=== PATIENT | male | born 1955 | race African-American/Black ===

== ENCOUNTER 2022-02-16 15:40 | Observation (INO) ==
[2022-02-16 17:26] LABS: Albumin 4.3 G/DL (3.4-5.0); Bilirubin,Total 3.6 MG/DL (0.20-1.00); Calcium 10.8 MG/DL (8.5-10.1); Osmolality,Calculated 279.7 MOS/KG (273-304); Potassium 4.6 MMOL/L (3.5-5.1); Thyroid Stimulating Hormone 1.72 uIU/ml (0.358-3.74); Total Protein 7.7 G/DL (6.4-8.2)
[2022-02-16 17:29] LABS: Basophils # 0.1 10*3/uL (0.0-0.2); Basophils % 0.6 % (0.0-0.8); Eosinophils % 0.5 % (0.00-10.9); Hematocrit 45.8 VOL% (42.0-52.0); Hemoglobin 14.1 GM/DL (14.0-18.0); Immature Granulocytes % 0.3 %; Immature Granulocytes Absolute 0.02 #; Lymphocytes # 2.9 10*3/uL (1.4-4.0); Lymphocytes % 36.6 % (21.2-54.2); Mean Corpuscular HGB Conc 30.8 GM/DL (32-36); Mean Corpuscular Volume 90.9 FL (87-102); Mean Platelet Volume 10.6 FL (9.6-12.0); Monocytes # 0.9 10*3/uL (0.11-0.8); Monocytes % 11.8 % (1.7-12.7); Neutrophils % 50.2 % (38.7-73.9); Platelet Count 283 T/CUMM (130-400); Red Blood Count 5.04 MC/CUMM (3.8-5.5); Red Cell Distribution Width 12.2 % (9.3-17.3); White Blood Count 7.8 T/CUMM (4-12)
[2022-02-16] MEDS ORDERED: FUROSEMIDE 20 MG/2 ML VIAL IV STA (19:38)
[2022-02-16] MEDS ORDERED: FUROSEMIDE 40 MG/4 ML VIAL IV STA ×2 (19:39→20:36)
[2022-02-16] MEDS ORDERED: ONDANSETRON 4 MG/2 ML VIAL IV PRN (20:36)
[2022-02-16] MEDS ORDERED: ACETAMINOPHEN 325 MG TABLET PO PRN (20:36)
[2022-02-16] MEDS ORDERED: hydrALAZINE 20 MG/1 ML VIAL IV PRN (20:36)
[2022-02-16] MEDS ORDERED: MORPHINE 2 MG/1 ML SYRINGE IV PRN (20:36)
[2022-02-16] MEDS ORDERED: SIMETHICONE CHEW 125 MG TABLET PO PRN (20:56)
[2022-02-16] MEDS: cefTRIAXone 1,000 MG in SODIUM CHLORIDE 0.9% 100 ML IV SCH (21:22)
[2022-02-16] MEDS: AZITHROMYCIN INJ 500 MG in SODIUM CHLORIDE 0.9% 250 ML IV SCH (21:37)
[2022-02-16 22:01] LABS: Hepatitis B Core IgM Quant 0.05 Index; Hepatitis B Surface Ag Quant < 0.10 Index; Hepatitis B Surface Ag Result Non-Reactive (NonReactive); Hepatitis C Virus Ab Quant 0.02 Index; Hepatitis C Virus Ab Result Non-Reactive (NonReactive)
[2022-02-17] MEDS: ALBUTEROL/IPRATROPIUM 3 ML NEB RESP TX SCH ×4 (00:37→20:16)
[2022-02-17] MEDS ORDERED: POTASSIUM CHLORIDE 20 MEQ TABLET PO PRN (01:02)
[2022-02-17 05:03] LABS: Basophils % 0.5 % (0.0-0.8); Eosinophils % 0.1 % (0.00-10.9); Hemoglobin 13.4 GM/DL (14.0-18.0); Immature Granulocytes % 0.4 %; Immature Granulocytes Absolute 0.03 #; Lymphocytes # 2.1 10*3/uL (1.4-4.0); Lymphocytes % 25.4 % (21.2-54.2); Mean Corpuscular HGB Conc 31.2 GM/DL (32-36); Mean Corpuscular Volume 91.1 FL (87-102); Mean Platelet Volume 10.6 FL (9.6-12.0); Monocytes # 0.7 10*3/uL (0.11-0.8); Monocytes % 8.8 % (1.7-12.7); Neutrophils % 64.8 % (38.7-73.9); Platelet Count 247 T/CUMM (130-400); Red Blood Count 4.72 MC/CUMM (3.8-5.5); Red Cell Distribution Width 11.9 % (9.3-17.3); White Blood Count 8.2 T/CUMM (4-12)
[2022-02-17 05:22] LABS: Calcium 9.6 MG/DL (8.5-10.1); Osmolality,Calculated 282.4 MOS/KG (273-304); Potassium 3.8 MMOL/L (3.5-5.1)
[2022-02-17] MEDS: METOPROLOL SUCCINATE XL 25 MG TABLET PO SCH (09:20)
[2022-02-17] MEDS: PANTOPRAZOLE 40 MG TABLET PO SCH (09:20)
[2022-02-17] MEDS: ASPIRIN EC 81 MG TABLET PO SCH (09:20)
[2022-02-17] MEDS: SPIRONOLACTONE 25 MG TABLET PO SCH (09:20)
[2022-02-17] MEDS: FUROSEMIDE 40 MG/4 ML VIAL IV SCH ×2 (09:21→15:57)
[2022-02-17] MEDS: ENOXAPARIN 40 MG/0.4 ML SYRINGE SUBCUT SCH (09:21)
[2022-02-17] MEDS: DAPAGLIFLOZIN 10 MG TABLET PO SCH (13:14)
[2022-02-17] MEDS: SACUBITRIL/VALSARTAN 49-51 MG TABLET PO SCH ×2 (13:14→21:45)
[2022-02-17] MEDS: cefTRIAXone 1,000 MG in SODIUM CHLORIDE 0.9% 100 ML IV SCH (21:45)
[2022-02-17] MEDS: AZITHROMYCIN INJ 500 MG in SODIUM CHLORIDE 0.9% 250 ML IV SCH (21:46)
[2022-02-18] MEDS: ALBUTEROL/IPRATROPIUM 3 ML NEB RESP TX SCH ×2 (01:53→07:15)
[2022-02-18 06:14] LABS: Basophils # 0.1 10*3/uL (0.0-0.2); Basophils % 0.7 % (0.0-0.8); Eosinophils # 0.1 10*3/uL (0.0-0.87); Eosinophils % 1.1 % (0.00-10.9); Hematocrit 45.1 VOL% (42.0-52.0); Hemoglobin 14.6 GM/DL (14.0-18.0); Immature Granulocytes % 0.2 %; Immature Granulocytes Absolute 0.02 #; Lymphocytes # 3.7 10*3/uL (1.4-4.0); Lymphocytes % 38.8 % (21.2-54.2); Mean Corpuscular HGB Conc 32.4 GM/DL (32-36); Mean Corpuscular Volume 88.3 FL (87-102); Mean Platelet Volume 11.2 FL (9.6-12.0); Monocytes % 10.3 % (1.7-12.7); Neutrophils % 48.9 % (38.7-73.9); Platelet Count 270 T/CUMM (130-400); Red Blood Count 5.11 MC/CUMM (3.8-5.5); Red Cell Distribution Width 12.1 % (9.3-17.3); White Blood Count 9.6 T/CUMM (4-12)
[2022-02-18 06:38] LABS: Albumin 3.3 G/DL (3.4-5.0); Bilirubin,Total 2.4 MG/DL (0.20-1.00); Calcium 9.7 MG/DL (8.5-10.1); Osmolality,Calculated 281.3 MOS/KG (273-304); Potassium 3.3 MMOL/L (3.5-5.1); Total Protein 6.4 G/DL (6.4-8.2)
[2022-02-18] MEDS ORDERED: POTASSIUM CHLORIDE 20 MEQ TABLET PO ONE (09:00)
[2022-02-18] MEDS: ASPIRIN EC 81 MG TABLET PO SCH (09:30)
[2022-02-18] MEDS: DAPAGLIFLOZIN 10 MG TABLET PO SCH (09:30)
[2022-02-18] MEDS: SACUBITRIL/VALSARTAN 49-51 MG TABLET PO SCH (09:31)
[2022-02-18] MEDS: PANTOPRAZOLE 40 MG TABLET PO SCH (09:31)
[2022-02-18] MEDS: SPIRONOLACTONE 25 MG TABLET PO SCH (09:31)
[2022-02-18] MEDS: ENOXAPARIN 40 MG/0.4 ML SYRINGE SUBCUT SCH (09:32)
[2022-02-18] MEDS: FUROSEMIDE 40 MG/4 ML VIAL IV SCH (09:32)
[2022-02-18] MEDS: METOPROLOL SUCCINATE XL 25 MG TABLET PO SCH (09:32)
[2022-02-18 13:34] VITALS: BP 101/75
== END 2022-02-18 13:35 | disposition home or self-care (01) ==
LOC: N.ED 15:40 → N.EDINP 15:40 → N.2W 21:57 → N.TELES 02-17 18:35
PROVIDERS: ADMIT Family Medicine; ATTEND Family Medicine